=== PATIENT | male | born 1990 | race Caucasian/White ===

== ENCOUNTER 2019-01-02 22:16 | Inpatient (IN) | payer OTHER ==
[~2019-01-02] VITALS: Ht 182.9 cm; Wt 77.1 kg
--- NOTE | 2019-01-02 22:27 | NUR ---
PT ALERTA Y ORIENTADO X3 ESFERAS QUIEN REFIERE DOLOR ABDOMINAL RLQ VELASQUEZ DESDE HACEN DOS HORAS.
--- NOTE | 2019-01-02 22:42 | NUR ---
PT ALERTA Y ORIENTADO X3 ESFERAS SE LE ORIENTA SOBRE TX Y REFIERE ENTEDER. SE JEFF MUESTRAS DE PORFIRIO Y VENOPUNCION CON TECNICAS ASEPTICAS. SE ADMINISTRAN MEDICAMENTOS ORDENADOS. PT TOLERA TX.\ PT MANEJADO POR MS Y.PHILLIP.
--- NOTE | 2019-01-02 23:50 | NUR ---
SE RECIBE PACIENTE ALERTA Y ORIENTADO EN CAMA PACIENTE CON VENOPUNICON PTENTE EUSEBIO DE DOMINIK AY ERRITEMA. PACIENTE CON DXTROSA 5% -.45NSS BAJANDO A 125 ML/HR. EN ESPERA DE CONSULTA CON EL DR. JAVED BARTLETT. SE NEREIDA A PACIENTE EN CAMA BAJO OBSERVACION POR CAMBIOS EN BUSBY CONDICION.
[2019-01-06] MEDS ORDERED: PERCOCET 5-3251 EACH PO (18:15)
== END 2019-01-06 18:47 | disposition home or self-care (01) | DRG 343 ==
LOC: ER 22:16 → SURH 01-03 06:39 → SEC-K 01-03 06:39 → SURH 01-03 10:35
PROVIDERS: ADMIT Surgery
PROC: BW21ZZZ Computerized Tomography (CT Scan) of Abdomen and Pelvis (ICD-10-PCS; 2019-01-03)
PROC: 0DTJ4ZZ Resection of Appendix, Percutaneous Endoscopic Approach (ICD-10-PCS; principal; 2019-01-03 07:00)
DX: K35.890 Other acute appendicitis without perforation or gangrene (principal)

== ENCOUNTER 2021-05-02 19:17 | Emergency (ER) | payer OTHER ==
[~2021-05-02] VITALS: Ht 167.6 cm; Wt 88.5 kg
[~2021-05-02 19:17] MED LIST: PERCOCET 5-3251 EACH PO
[2021-05-03] MEDS ORDERED: PROAIR RESPICL90 MCG IH (02:04)
[2021-05-03] MEDS ORDERED: COLCHICINE0.6 MG PO (02:04)
[2021-05-03] MEDS ORDERED: VITAMIN D3-CAL1 EACH PO (02:04)
[2021-05-03] MEDS ORDERED: MUCINEX DM ER1 EAC1 PO (02:04)
[2021-05-03] MEDS ORDERED: IVERMECTIN3 MG PO (02:04)
[2021-05-03] MEDS ORDERED: VITAMIN C WIT1000 MG PO (02:04)
[2021-05-03] MEDS ORDERED: ACETAMINOPHEN650 M2 PO (02:04)
[2021-05-03] MEDS ORDERED: AZITHROMYCIN500 MG PO (02:04)
[2021-05-03] MEDS ORDERED: MELATONIN10 M2 PO (02:04)
== END 2021-05-03 02:17 | disposition home or self-care (01) ==
LOC: ER 19:17
DX: U07.1 COVID-19 (principal)

== ENCOUNTER 2022-03-04 20:21 | Emergency (ER) | payer OTHER ==
[~2022-03-04] VITALS: Ht 167.6 cm; Wt 90.7 kg
[~2022-03-04 20:21] MED LIST changes: +ACETAMINOPHEN650 M2 PO; +AZITHROMYCIN500 MG PO; +COLCHICINE0.6 MG PO; +IVERMECTIN3 MG PO; +MELATONIN10 M2 PO; +MUCINEX DM ER1 EAC1 PO; +PROAIR RESPICL90 MCG IH; +VITAMIN C WIT1000 MG PO; +VITAMIN D3-CAL1 EACH PO
[2022-03-05] MEDS ORDERED: PEPCID AC20 MG PO (03:23)
[2022-03-05] MEDS ORDERED: ONDANSETRON HCL4 MG PO (03:23)
== END 2022-03-05 03:34 | disposition home or self-care (01) ==
LOC: ER 20:21
DX: R11.2 Nausea with vomiting, unspecified (principal); R10.9 Unspecified abdominal pain

== ENCOUNTER 2023-03-21 06:30 | Emergency (ER) | payer OTHER ==
[~2023-03-21] VITALS: Ht 175.3 cm; Wt 81.6 kg
[~2023-03-21 06:30] MED LIST changes: +ONDANSETRON HCL4 MG PO; +PEPCID AC20 MG PO
== END 2023-03-21 12:12 | disposition home or self-care (01) ==
LOC: ER 06:30
DX: K21.9 Gastro-esophageal reflux disease without esophagitis (principal)

== ENCOUNTER 2025-04-22 18:21 | Emergency (ER) | payer OTHER ==
[~2025-04-22] VITALS: Ht 170.2 cm; Wt 88.5 kg
[2025-04-22] MEDS ORDERED: ACETAMINOPHEN 500 MG GEL..CAP PO ONE ×2 (19:45→20:30)
[2025-04-22] MEDS ORDERED: ONDANSETRON HCL 2 MG/ML VIAL IV ONE (19:45)
[2025-04-22] MEDS ORDERED: FAMOTIDINE/PF 20 MG/2 ML VIAL IV ONE (19:45)
[2025-04-22] MEDS ORDERED: 0.9 % SODIUM CHLORIDE 500 ML IV ONE (19:45)
[2025-04-22] MEDS ORDERED: ONDANSETRON HCL 2 MG/ML VIAL ONE (20:30)
[2025-04-22] MEDS ORDERED: FAMOTIDINE/PF 20 MG/2 ML VIAL ONE (20:30)
[2025-04-22 21:06] LABS: BASO % 0.4 % (0.1-1.2); EOS # 0.05 (0.04-0.54); EOS % 0.5 % (0.7-7.0); LYMPH # 0.44 (1.18-3.74); LYMPH % 4.8 % (19.3-53.1); MEAN PLATELET VOLUME 12.30 fl (9.4-12.4); MONO # 0.69 (0.24-0.82); MONO % 7.5 % (4.7-12.5); NEUT # 7.95 (1.56-6.13); NEUT % 86.5 % (34.0-71.1); RED CELL DISTRIBUTION WIDTH 12.4 % (11.6-14.4)
[2025-04-22 21:23] LABS: COVID-19 AG POSITIVE (NEGATIVE)
[2025-04-22 21:27] LABS: ALT/SGPT 40.0 U/L (12-78); AST/SGOT 18.0 U/L (15-37); BILIRUBIN TOTAL 0.48 mg/dL (0.3-1.2); BUN CREA RATIO 12.0 (7.0-25.0); CREATININE SERUM 0.94 mg/dL (0.70-1.30); GFR 90.81; GLOBULINA 3.2 G/DL (2.4-3.5); GLUCOSE FASTING 108.0 mg/dL (65-100); OSMOLALITY SERUM 276.0 MOSM/KG (275-295)
[2025-04-22] MEDS ORDERED: TUSSIN DM 200-118 ML PO (21:40)
[2025-04-22] MEDS ORDERED: PEPCID AC20 MG PO (21:40)
[2025-04-22] MEDS ORDERED: ONDANSETRON HCL4 MG PO (21:40)
== END 2025-04-22 22:37 | disposition home or self-care (01) ==
LOC: ER 18:21
PROVIDERS: General Practice
DX: U07.1 COVID-19 (principal); R50.9 Fever, unspecified; R11.10 Vomiting, unspecified

== ENCOUNTER → 2025-07-20 | Emergency (ER) | payer OTHER ==
[~2025-07-20] VITALS: Ht 167.6 cm; Wt 70.3 kg
[~2025-07-20] MED LIST changes: +0.9 % SODIUM CHLORIDE 1,000 ML IV ONE; +FAMOtidine 10 MG/ML (4ML VIAL) IV PUSH ONE; +MORPHINE SULFATE 4 MG/ML CARTRIDGE IV ONE; +ONDANSETRON HCL 2 MG/ML VIAL IV ONE; +TUSSIN DM 200-118 ML PO
== END | disposition designated cancer center or children's hospital (05) ==
LOC: ER 19:59
DX: S31.139A Puncture wound of abdominal wall without foreign body, unspecified quadrant without penetration into peritoneal cavity, initial encounter (principal); Y24.8XXA Other firearm discharge, undetermined intent, initial encounter; Y93.89 Activity, other specified; Y92.89 Other specified places as the place of occurrence of the external cause; Y99.9 Unspecified external cause status